=== PATIENT | female | born 1975 | race Caucasian/White ===

== ENCOUNTER 2019-10-18 15:31 | Outpatient (CLI) | payer BC, SELFPAY ==
--- NOTE | ~2019-10-18 | XR_ITS ---
XR chest 2V DATE: 10/18/2019 15:52 INDICATION: Shortness of breath.] Covid Infection. TECHNIQUE: PA and lateral views COMPARISON: 04/26/2013 AP chest FINDINGS: Normal heart size. No hilar or mediastinal enlargement. No pulmonary infiltrate or consolid ation, pleural effusion or pulmonary vascular congestion or pneumothorax. Included skeletal structures are unremarkable. IMPRESSION: No active cardiopulmonary disease Reviewed, dictated and finalized at location A.
== END 2019-10-18 15:32 | disposition home or self-care (01) ==
LOC: ANHIMG 15:36
PROVIDERS: PCP Internal Medicine; Visit Provider Nurse Practitioner
DX: R06.02 Shortness of breath (principal)
CPT/HCPCS: 71046

== ENCOUNTER → 2022-11-27 08:36 | Outpatient (CLI) | payer BC, SELFPAY ==
--- NOTE | ~2022-11-27 | XR_ITS ---
AP and lateral views of the left hip Clinical history: Pain Findings: No acute fracture or dislocation is seen. Osseous alignment is anatomic. The left hip joint and left SI joint are preserved. Soft tissues are unremarkable. Impression: No significant abnormality is seen. Reviewed, dictated and finalized at [facility]. Impression: No significant abnormality is seen.
== END ==
PROVIDERS: PCP Internal Medicine; Visit Provider Clinical Nurse Specialist
DX: M25.552 Pain in left hip (principal); M25.562 Pain in left knee
CPT/HCPCS: 73502; 73562

== ENCOUNTER → 2022-12-16 09:49 | Outpatient (CLI) | payer BC, SELFPAY ==
--- NOTE | ~2022-12-16 | MR_ITS ---
MRI of the left knee Clinical history: Pain Technique: Coronal proton density and proton density-weighted images, sagittal proton-density and T2 fat-sat images, and axial proton-density fat-saturated images were acquired. Findings: Anterior and posterior cruciate ligaments are intact. Medial collateral ligament and the la teral collateral ligament complex are intact. Popliteus tendon is intact. Medial and lateral menisci are intact, without evidence of tear. Articular cartilage is well preserved throughout the knee. Bone marrow signals are unremarkable. Extensor mechanism is intact. No significant joint effusion or Delgado's cyst. Impression: No significant abnormality seen. Reviewed, dictated and finalized at location M. Impression: No significant abnormality seen.
--- NOTE | ~2022-12-16 | MR_ITS ---
MRI of the left hip Clinical history: Pain Technique: Coronal T1-weighted, T2-weighted, and proton-density fat-sat images, and axial T1-weighted and proton-density fat-sat images were acquired through the pelvis. Coronal T2-weighted images and c oronal, axial, and sagittal proton-density fat-sat images were acquired through the left hip. Findings: There is no fracture, avascular necrosis, transient osteoporosis of either hip. Bone marrow signals the proximal femora and visualized pelvic bones are unremarkable. No significant degenerativ e change of either hip. No hip joint effusion. No left acetabular labral tear identified. No evidence for femoral acetabular impingement. Visualized musculature about the pelvis and left hip is unremarkable. No muscle atrophy or edema iden tified. Visualized tendons are intact. No evidence for bursitis. No soft tissue mass or fluid collect ion. IMPRESSION: No significant abnormality seen. Reviewed, dictated and finalized at [facility].
== END ==
PROVIDERS: PCP Clinical Nurse Specialist; Visit Provider Clinical Nurse Specialist
DX: G89.29 Other chronic pain (principal); M25.562 Pain in left knee; M25.552 Pain in left hip
CPT/HCPCS: 73721

== ENCOUNTER 2022-12-18 00:57 | Day surgery (SDC) | payer BC, SELFPAY ==
[2022-12-08 14:19] VITALS: BMI 22.5
--- NOTE | 2022-12-17 14:55 | PM.HPGS ---
History of Present Illness History of Present Illness Consent: Risks, benefits, and alternatives have been discussed and questions answered. Patient agrees to proceed with procedure. Chief complaint: Crohn's disease, unspecified, without complication Narrative: Yolanda Thomason is a 47 year old female With a long history of Crohn's disease. She is not currently on any medication for inflammatory bowel disease. She was initially diagnosed with Crohn's disease in 1993. Five years ago she again developed fibrostenotic stricturing and required surgery with resection of 23 cm of colon 5 cm of terminal ileum. It appears that her last colonoscopy was about a year later and it was done at [facility]. She was restarted apparently on her medication which was Cimzia and 6 MP. Review of Systems Review of Systems: All systems reviewed & are unremarkable except as noted in HPI and below PMFSH Past Medical History Medical History Anemia Closed left arm fracture x3 Crohn's disease Endometriosis Right arm fracture Sore throat URI (upper respiratory infection) UTI (urinary tract infection) Surgical History Surgical History H/O breast augmentation History of colon resection Hx of appendectomy Myringotomy tube(s) status Family History Family History Father Patient's father is in good health Mother Family history of irritable bowel syndrome Social History Social History Social History: Caffeine-coffee daily Smoking status: Never smoker Alcohol intake: current Alcohol use details: Socially Substance use type: does not use Lack of Transportation: No Current Housing: I Have Housing Concerned About Future Housing: No Difficulty Paying Gas/Electric Bills: No Difficulty Paying for Meds: No Currently Unemployed: No Education: Associate Degree Difficulty w/ Childcare or Family Care: No Living arrangements: alone Meds Home Medications and Allergies Home Medications Medication Instructions Recorded Confirmed Type alprazolam 0.25 mg tablet (Xanax) 0.25 mg PO DAILY 12/08/22 12/18/22 History budesonide 3 mg 9 mg PO DAILY #90 ea 12/18/22 Rx capsule,delayed,extended release Allergies Allergy/AdvReac Type Severity Reaction Status Date / Time No Known Allergies Allergy Verified 12/18/22 10:49 Exam Const: General: alert Orientation/consciousness: patient oriented x3 Resp: Auscultation: clear to auscultation bilaterally Cardio: Rhythm: regular rhythm GI: GI Palp: Yes Soft to palpation and No Tenderness to palpation present (GI) Neuro: General: patient oriented x3 Assessment and Plan Assessment and plan (1) Crohn's disease: Qualifiers: Digestive disease complication type: unspecified complication Gastrointestinal tract location: unspecified location Qualified Code(s): K50.919 - Crohn's disease, unspecified, with unspecified complications Code(s): K50.90 - Crohn's disease, unspecified, without complications Status: Acute Assessment and Plan: Colonoscopy with possible biopsy or polypectomy or cautery or injection of substances.
[2022-12-18 10:50] VITALS: BP 107/70; PULSE 91; RESP 16; TEMP 36.3; O2SAT 99; BMI 22.2
[2022-12-18] MEDS: LACTATED RINGERS 1,000 ML 150 ML IV CONT (11:02)
--- NOTE | 2022-12-18 11:20 | WPDANESEPPF ---
Anes - Initial Pre Proc Eval Procedure: Operation Date: 12/18/22 11:30 Proposed Procedures p Colonoscopy - Atif Cao MD Date/Time: 12/18/22 11:20 Surgeon: Atif Cao MD Pre Op Diagnosis: Crohn's disease, unspecified, without complication Patient Data Age: 47 Gender: F Height: 1.65 m Weight: 60.7 kg Last Vital Signs Temp 97.4 F L 12/18/22 10:50 Pulse 91 12/18/22 10:50 Resp 16 12/18/22 10:50 BP 107/70 12/18/22 10:50 Pulse Ox 99 12/18/22 10:50 O2 Del Method Room Air 12/18/22 10:50 Allergies Allergy/AdvReac Type Severity Reaction Status Date / Time No Known Allergies Allergy Verified 12/18/22 10:49 Home Medications Medication Instructions Recorded Confirmed Type alprazolam 0.25 mg tablet (Xanax) 0.25 mg PO DAILY 12/08/22 12/18/22 History Patient hx anesthesia problems: none Family hx anesthesia problems: none Results Review: All pre-operative results and documents have been reviewed as part of the pre-operative evaluation. [facility] Past Medical History Medical History (Updated 11/28/22 @ 10:36 by JENNIFER Vickers) Anemia Closed left arm fracture x3 Crohn's disease Endometriosis Right arm fracture Sore throat URI (upper respiratory infection) UTI (urinary tract infection) Surgical History Surgical History H/O breast augmentation History of colon resection Hx of appendectomy Myringotomy tube(s) status Family History Family History Father Patient's father is in good health Mother Family history of irritable bowel syndrome Social History Social History (Updated 11/27/22 @ 08:12 by Hang Stevens MA) Social History: Caffeine-coffee daily Smoking status: Never smoker Alcohol intake: current Alcohol use details: Socially Substance use type: does not use Lack of Transportation: No Current Housing: I Have Housing Concerned About Future Housing: No Difficulty Paying Gas/Electric Bills: No Difficulty Paying for Meds: No Currently Unemployed: No Education: Associate Degree Difficulty w/ Childcare or Family Care: No Living arrangements: alone Anes - Eval Final PreProcedure Day of Procedure 12/18/22 11:20 Patient weight: normal Heart: regular rate and rhythm Lungs: clear to auscultation Airway: Mallampati scale class II Neurological: alert and oriented Last oral intake: >/= 8 hours ASA classification: II Emergent: no Anesthetic plan: proceed Anesthesia type and monitoring: general GIVS and standard monitoring Results Review: All pre-operative results and documents have been reviewed as part of the pre-operative evaluation. Informed Consent: The patient's anesthetic plan and its attendant risks and benefits were discussed with the patient/family/POA. Questions were solicited and answers provided to the satisfaction of the patient/family/POA.
[2022-12-18 11:44] VITALS: BP 89/58; PULSE 76; RESP 16; O2SAT 100
[2022-12-18 11:54] VITALS: BP 91/60; PULSE 72; RESP 20; O2SAT 100
[2022-12-18 12:04] VITALS: BP 109/72; PULSE 85; RESP 20; O2SAT 100
== END 2022-12-18 12:17 | disposition home or self-care (01) ==
PROVIDERS: PCP Clinical Nurse Specialist; Visit Provider Internal Medicine Gastroenterology
PROC: 0DJD8ZZ Inspection of Lower Intestinal Tract, Via Natural or Artificial Opening Endoscopic (ICD-10-PCS; CPT 45378; principal; 2022-12-18 11:30)
DX: K50.10 Crohn's disease of large intestine without complications (principal); Z90.49 Acquired absence of other specified parts of digestive tract; Z98.0 Intestinal bypass and anastomosis status
CPT/HCPCS: 45380; 88305; J2704; J7120

== ENCOUNTER 2023-04-08 10:00 | Outpatient (CLI) | payer BC, SELFPAY ==
[2023-04-13 23:42] LABS: Calprotectin, Stool 390 mcg/g
== END 2023-04-08 10:01 | disposition home or self-care (01) ==
LOC: ANHLAB 10:01
PROVIDERS: PCP Clinical Nurse Specialist; Visit Provider Internal Medicine Gastroenterology
DX: K50.919 Crohn's disease, unspecified, with unspecified complications (principal)
CPT/HCPCS: 83993

== ENCOUNTER 2023-05-25 09:58 | Outpatient (CLI) | payer BC, SELFPAY ==
--- NOTE | ~2023-05-25 | US_ITS ---
EXAMINATION: US soft tissue LE LT, US soft tissue UE RT, US soft tissue UE LT DATE: 05/25/2023 10:27 INDICATION: Localized swelling, mass or lump at the posterior right elbow, posterior distal left thig h and proximal posterior left upper arm. TECHNIQUE: Multiple grayscale and Doppler ultrasound images of the 3 region of concern at the left an d right upper extremities and left lower extremity were obtained. COMPARISON: None FINDINGS: There are 3 small regions of subtly increased echogenicity within the subcutaneous fat at the region of concern. At the posterior right elbow this measures 5 x 4 x 7 mm. At the lateral left elbow/antecu bital fossa this measures 1.2 x 0.5 x 1.2 cm. At the distal posterior left thigh this measures 7 x 6 x 5 mm. Each region demonstrates similar echotexture as the surrounding subcutaneous fat and are with out well-defined peripheral margins. IMPRESSION: 1. 3 somewhat nodular subtly hypoechoic regions in the subcutaneous fat at the sites of concern as de tailed above. Differential would include lipomas although there are no well-defined peripheral capsul e to more specifically suggest this or other neoplasm and would favor either inflammation of normal f at or artifactual appearance of echogenic nodules resulting from adjacent subtle bands of decreased e chogenicity resulting from refraction artifact. Reviewed, dictated and finalized at location A. IMPRESSION: 1. 3 somewhat nodular subtly hypoechoic regions in the subcutaneous fat at the sites of concern as detailed above. Differential would include lipomas although there are no well-defined peripheral capsule to more specifically suggest this or other neoplasm and would favor either inflammation of normal fat or artifac tual appearance of echogenic nodules resulting from adjacent subtle bands of de creased echogenicity resulting from refraction artifact. IMPRESSION: 1. 3 somewhat nodular subtly hypoechoic regions in the subcutaneous fat at the sites of concern as detailed above. Differential would include lipomas although there are no well-defined peripheral capsule to more specifically suggest this or other neoplasm and would favor either inflammation of normal fat or artifac tual appearance of echogenic nodules resulting from adjacent subtle bands of de creased echogenicity resulting from refraction artifact.
== END 2023-05-25 09:59 ==
LOC: GOSHIMG 09:59
PROVIDERS: PCP Clinical Nurse Specialist; Visit Provider Clinical Nurse Specialist
DX: R22.9 Localized swelling, mass and lump, unspecified (principal); M79.89 Other specified soft tissue disorders
CPT/HCPCS: 76882

== ENCOUNTER → 2023-07-06 11:31 | Outpatient (REF) | payer BC, SELFPAY | LOC: ANHLAB 11:31 | PROVIDERS: PCP Clinical Nurse Specialist; Visit Provider Plastic Surgery | DX: R22.9 Localized swelling, mass and lump, unspecified (principal) | CPT/HCPCS: 88304 ==